=== PATIENT | male | born 1955 | race Caucasian/White ===

== ENCOUNTER → 2018-07-14 | Outpatient (CLI) | payer BC ==
--- NOTE | 2018-07-14 09:23 | CARD ---
MR#: [id number] Date of Study: 07/14/2018 Ordering Physician: EDUARDO BARBA, Referring Physician: EDUARDO BARBA, Tech: Sheila Urias [facility] APPROVED REPORT EXAM: Two-dimensional and M-mode echocardiogram with Doppler and color Doppler. Other Information Quality : AverageHR: 62bpm Rhythm : NSR INDICATION CAD 2D DIMENSIONS Left Atrium(2D)3.3 (1.6-4.0cm)IVSd1.4 (0.7-1.1cm) Aortic Root(2D)3.7 (2.0-3.7cm)LVDd5.3 (3.9-5.9cm) LVOT Diameter2.3 (1.8-2.4cm)PWd1.0 (0.7-1.1cm) LVDs3.8 (2.5-4.0cm)FS (%) 27.3 % SV70.6 mlLVEF(%)53.0 (>50%) M-Mode DIMENSIONS Left Atrium(MM)3.01 (2.5-4.0cm)Aortic Root3.92 (2.2-3.7cm) Aortic Valve AoV Peak Tk.105.1cm/sAoV VTI21.0cm AO Peak GR.4.4mmHgLVOT Peak Tk.109.4cm/s AO Mean GR.2mmHgAVA (VMAX)4.46cm2 VIANEY (VTI)4.00cm2 Mitral Valve MV E Emzdqjgw465.4cm/sMV DECEL MEIA883ts MV A Ybcdwtic08.8cm/sE/A Ratio1.3 MV A [id number] Pulmonary Valve PV Peak Vyywdwzr878.2cm/s Tricuspid Valve TR P. Nlisshpd205at/sRAP YSNWAGDP5rxTf TR Peak Gr.15swWwWCLQ15vkAu Pulmonary Vein S1 Dhkbmmga55.7cm/sD2 Vatvbsjy99.8cm/s PVa lhhxndcn003zzvm LEFT VENTRICLE The left ventricle is normal size. Proximal septal thickening is noted. The left ventricular systolic function is normal. The Ejection Fraction is 55-60%. There is normal LV segmental wall motion. Trans mitral Doppler flow pattern is Grade II-pseudonormal filling dynamics. RIGHT VENTRICLE The right ventricle is normal size. There is normal right ventricular wall thickness. The right ventr icular systolic function is normal. ATRIA The left atrium size is normal. The right atrium size is normal. The interatrial septum is intact wit h no evidence for an atrial septal defect or patent foramen ovale as noted on 2-D or Doppler imaging. AORTIC VALVE The aortic valve is normal in structure and function. The aortic valve is trileaflet. Doppler and Col or Flow revealed trace aortic regurgitation. There is no significant aortic valvular stenosis. MITRAL VALVE The mitral valve is normal in structure and function. There is no evidence of mitral valve prolapse. There is no mitral valve stenosis. Doppler and Color-flow revealed trace to mild mitral regurgitation . TRICUSPID VALVE The tricuspid valve is normal in structure and function. Doppler and Color Flow revealed trace tricus pid regurgitation. There is mild pulmonary hypertension. The PA pressure was estimated at 35 mmHg. Th ere is no tricuspid valve prolapse or vegetation. There is no tricuspid valve stenosis. PULMONIC VALVE The pulmonary valve is normal in structure and function. Doppler and Color Flow revealed mild to mode rate pulmonic valvular regurgitation. There is no pulmonic valvular stenosis. GREAT VESSELS The aortic root is mildly enlarged. The ascending aorta is Mildly dilated. 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 PERICARDIAL EFFUSION There is no evidence of significant pericardial effusion. Critical Notification Critical Value: No <Conclusion> The left ventricular systolic function is normal. The Ejection Fraction is 55-60%. There is normal LV segmental wall motion. Trace to mild mitral regurgitation. Trace tricuspid regurgitation. There is mild pulmonary hypertension. The PA pressure was estimated at 35 mmHg. There is no evidence of significant pericardial effusion. Signed by : Sylvseter Alanis, Electronically Approved : 07/14/2018 09:22:32
== END | disposition home or self-care (01) ==
LOC: ECHO 08:08
PROVIDERS: ATTEND Internal Medicine Cardiovascular Disease
DX: I27.20 Pulmonary hypertension, unspecified (principal); I37.1 Nonrheumatic pulmonary valve insufficiency; N18.3 Chronic kidney disease, stage 3 (moderate); I50.30 Unspecified diastolic (congestive) heart failure
CPT/HCPCS: 93306